=== PATIENT | male | born 1955 | race Caucasian/White ===

== ENCOUNTER 2018-01-11 06:28 | Day surgery (SDC) | payer OTHER ==
[~2018-01-11 06:28] MED LIST: CEFAZOLIN 1 GM/50 ML (PMX) 50 ML IVPB; CEFAZOLIN 2 GM/50 ML (PMX) 50 ML IVPB; LACTATED RINGER'S 1,000 ML IV*
== END 2018-01-11 09:25 | disposition home or self-care (01) ==
LOC: SDS 06:28
DX: S42.351G Displaced comminuted fracture of shaft of humerus, right arm, subsequent encounter for fracture with delayed healing (principal); W19.XXXD Unspecified fall, subsequent encounter; Z53.8 Procedure and treatment not carried out for other reasons